=== PATIENT | female | born 2000 | race Caucasian/White ===

== ENCOUNTER → 2020-07-31 | Outpatient (CLI) | payer OTHER ==
--- NOTE | 2020-07-31 09:45 | XR ---
EXAMINATION TYPE: XR soft tissue neck DATE OF EXAM: 07/31/2020 COMPARISON: NONE HISTORY: Localized swelling, focal mass near the Thyroid gland level. TECHNIQUE: Two-view soft tissue neck. FINDINGS: No suspicious prevertebral soft tissue swelling. Straightening of cervical spine. No suspic ious narrowing of the subglottic airway on frontal view. Overlying Soft tissue unremarkable. Visualiz ed osseous structures intact. IMPRESSION: As above. No obvious mass.
--- NOTE | 2020-07-31 15:57 | US ---
EXAMINATION TYPE: US thyroid st tissue head/neck DATE OF EXAM: 07/31/2020 COMPARISON: NONE CLINICAL HISTORY: R22.1 Localized swelling, mass or lump. Feels lump in throat GLAND SIZE: Right Lobe: 3.1 x 0.9 x 1.0 cm Overall Parenchyma: homogenous Left Lobe: 2.9 x 0.8 x 1.0 cm Overall Parenchyma: homogeneous Isthmus Thickness: 0.2 cm NODULES RIGHT: # of nodules measured on right: 0 LEFT: # of nodules measured on left: 0 ISTHMUS: # of nodules measured in the isthmus: 0 Bilateral neck scanned, no evidence of lymphadenopathy. IMPRESSION: 1. Normal thyroid scan
== END | disposition home or self-care (01) ==
LOC: RADUSWWP 08:42
PROVIDERS: ATTEND Nurse Practitioner
DX: R22.1 Localized swelling, mass and lump, neck (principal)
CPT/HCPCS: 70360; 76536

== ENCOUNTER → 2020-10-10 | Outpatient (CLI) | payer OTHER ==
--- NOTE | 2020-10-10 13:47 | CT ---
EXAMINATION TYPE: CT soft tissue neck w con DATE OF EXAM: 10/10/2020 HISTORY: lump sensation superior to suprasternal notch COMPARISON: Soft tissue x-ray July 31, 2020 CT DLP: 332 mGycm. Automated Exposure Control for Dose Reduction was Utilized. TECHNIQUE: CT scan of the neck is performed with IV Contrast, patient injected with 100 mL of Isovue 300, axial images are obtained, coronal and sagittal reformatted images are reviewed. FINDINGS: Airway: Feeding soft tissue anterior superior mediastinum felt to reflect residual thymus tissue. Thy roid gland appears within normal limits. Airway grossly clear. Parotid/submandibular glands: No gross abnormality seen. Carotid/Vascular Structures: No suspicious abnormality is seen. Osseous Structures: Some reversal of normal cervical curvature centered at C5 level. Slight underlyin g scoliotic curvature on coronal images may be exaggerated by positioning. Other: Mild mucosal thickening inferior maxillary sinuses. Opacification of the right posterior ethmo id sinuses. Pharyngeal fat spaces are maintained. A few scattered subcentimeter lymph nodes throughout the neck b ilaterally. No definitive abnormal greater than 1 cm adenopathy. Superior to the sternal notch normal subcutaneous fat is identified anterior to the thyroid gland. St rap muscles are symmetric and felt within normal limits. No concerning mass or focal fluid collection is present. IMPRESSION: No suspicious mass or fluid collection.
== END | disposition home or self-care (01) ==
LOC: RADCTMAIN 12:34
PROVIDERS: ATTEND Otolaryngology
DX: R22.1 Localized swelling, mass and lump, neck (principal)
CPT/HCPCS: 70491; Q9967

== ENCOUNTER → 2020-10-18 | Outpatient (CLI) | payer OTHER | END | disposition home or self-care (01) | LOC: LABWHC1 09:23 | PROVIDERS: ATTEND Otolaryngology | DX: R22.1 Localized swelling, mass and lump, neck (principal) | CPT/HCPCS: 36415; 84443; 86376; 86800 ==

== ENCOUNTER → 2021-08-01 | Outpatient (CLI) | payer OTHER | LOC: LABWHC1 14:05 | PROVIDERS: ATTEND Family Medicine | DX: Z20.822 Contact with and (suspected) exposure to COVID-19 (principal); J06.9 Acute upper respiratory infection, unspecified; R05 Cough; R50.9 Fever, unspecified | CPT/HCPCS: 87634; U0003; U0005 ==